=== PATIENT | male | born 1960 | race Caucasian/White ===

== ENCOUNTER → 2024-02-29 06:27 | Day surgery (SDC) | payer OTHER, SELFPAY | LOC: GI 06:27 | PROVIDERS: ATTENDING PHYSICIAN Internal Medicine | DX: D49.0 Neoplasm of unspecified behavior of digestive system (principal); D12.2 Benign neoplasm of ascending colon; K64.8 Other hemorrhoids; K64.4 Residual hemorrhoidal skin tags; Z80.0 Family history of malignant neoplasm of digestive organs | CPT/HCPCS: 45385; 45380; 88305 ==

== ENCOUNTER → 2024-09-01 20:31 | Outpatient (REF) | payer MEDICARE, SELFPAY | LOC: MRI 20:31 | PROVIDERS: ATTENDING PHYSICIAN Nurse Practitioner Family | DX: M54.50 Low back pain, unspecified (principal) | CPT/HCPCS: 72148 ==

== ENCOUNTER 2024-09-30 15:56 | Emergency (ER) | payer MEDICARE, SELFPAY ==
[2024-09-30 16:03] VITALS: BP 156/67
--- NOTE | 2024-09-30 17:05 | ED.GENMED ---
History of Present Illness
General
Chief Complaint: Urinary Symptoms
Time Seen by Provider: 09/30/24 16:21
History of Present Illness
History of Present Illness:
64-year-old male with history of chronic A-fib, CAD, hypertension, hyperlipidemia, presents to the emergency department for evaluation of pelvic/genital pain associated with skin lesions for the past 2 days. Notes that he has chronic urinary
retention felt to be due to neurogenic bladder from lumbar disc disease, feels it is worse since the lesions developed. Denies any fevers or chills. Does have mild dysuria.
Past History
Past History
ED Past Medical History: Arrthythmia (afib), CAD, CHF, HTN, [place] and Other (RSD )
ED Past Surgical History: Orthopedic
Social History
Tobacco: Non-smoker
Alcohol: None
Drug: None
Personal: Single
Living: with family
Employment: Not employed
Review of Systems
Review of Systems
Allergies reviewed?: Yes
All Other Systems: ROS reviewed and negative except as documented in HPI and ROS
Phy Exam
Physical Exam
Physical Exam:
GEN: Well appearing, NAD, WDWN
HEENT: Oral mucosa moist, no scleral icterus
Cardiac: Regular rate
Lung: No respiratory distress, no tachypnea
: Vesicular/erythematous lesions confined to the right perineum, scrotal sac, and perirectal area with no encroachment across the midline
MSK: No gross deformity or injuries
Skin: Good color, no pallor or jaundice, no rashes
Neuro: AO x3, moves all extremities freely
Psych: Calm, cooperative
Course
Orders/Labs/Results
Orders:
Orders
09/30/24 16:29
Bladder Scan- Treatment ONCE
09/30/24 16:35
Urinalysis Reflex To Culture Urgent
Date Specimen was Collected: 09/30/24
Time Specimen was Collected: 16:31
Varicella-Zoster Virus By PCR [S] Urgent
Source: Vesicle Fluid
Vital Signs
Initial and Last Documented VS:
Initial Vital Signs
Temp Pulse Resp BP Pulse Ox
98.4 F 78 16 156/67 98
09/30/24 16:03 09/30/24 16:03 09/30/24 16:03 09/30/24 16:03 09/30/24 16:03
Last Documented Vital Signs
Temp Pulse Resp BP Pulse Ox
98.4 F 78 16 156/67 98
09/30/24 16:03 09/30/24 16:03 09/30/24 16:03 09/30/24 16:03 09/30/24 16:03
MDM/Problems Addressed
MDM/Problems Addressed:
Clinical exam consistent with herpes zoster, patient requesting testing despite the clinical appearance which was performed. Will start the patient empirically on valacyclovir and gabapentin. Of note he does report acute on chronic urinary
retention, postvoid bladder scan with 250 mL. He declines Graff catheter placement, will follow-up with his urologist for further evaluation of this
*Critical Care Note
Total Time (30-74mins, 75-104mins- exclusive of procedures): Not Applicable
ED Attending Note
-
Portions of this chart may have been created with voice recognition software.� Occasional wrong word or��sound alike� substitutions may have occurred due to the inherent limitations of voice recognition software.
Discharge Plan
Departure
Patient Disposition: Home (Routine Discharge)
Date of Disposition: 09/30/24
Time of Disposition: 17:06
Patient with high blood pressure during this ER visit?: No
Discharge Problem:
Herpes zoster
Instructions: Shingles
Prescriptions:
New
valacyclovir 1 gram tablet
1,000 mg PO TID 7 Days Qty: 21 0RF
gabapentin 300 mg capsule
300 mg PO TID Qty: 30 0RF
No Action
acetaminophen 325 MG tablet
325 mg PO Q6HPRN PRN (Reason: pain)
butalbital-acetaminophen [Tencon] 1 EACH tablet
1 ea PO PRN PRN (Reason: pain)
lorazepam 0.5 MG tablet
0.5 mg PO HSPRN PRN (Reason: sleep aid)
Patient Comments:
to help sleep
clopidogrel 75 MG tablet
75 mg PO DAILY Qty: 30 11RF
pantoprazole 40 MG tablet,delayed release (DR/EC)
40 mg PO DAILY Qty: 30 1RF
propranolol 20 MG tablet
20 mg PO Q6HPRN PRN (Reason: AFib/palpitations) Qty: 30 0RF
apixaban [Eliquis] 5 MG tablet
5 mg PO BID Qty: 60 3RF
nitroglycerin 0.4 MG tablet, sublingual
0.4 mg sublingual [id number] PRN (Reason: chest pain ) Qty: 25 0RF
Rx Instructions:
Take 1 tab under the tongue every 5 minutes x 3 doses as needed for chest pain
atorvastatin 80 MG tablet
40 mg PO QPM
furosemide 40 MG tablet
40 mg PO DAILY Qty: 30 3RF
amiodarone 200 MG tablet
400 mg PO BID Qty: 90 3RF
Rx Instructions:
400 mg BID for a week then 200 mg BID
Referrals:
Erik Cummings I., DO [Family Provider] -
Activity Restrictions/Additional Instructions:
Follow-up with your urologist regarding your urinary retention as any worsening may require placement of an indwelling catheter
Interventions
Interventions:
*Risk Screen - Suicide Last Done: 09/30/24 16:03
*General Assessment Last Done: 09/30/24 16:40
*Neglect/Abuse Screening Last Done: 09/30/24 16:03
*ED COVID-19 Vaccine History Last Done: 09/30/24 16:40
*Nursing Disposition Last Done: 09/30/24 17:17
ED-Male Genitourinary Assessment Last Done: 09/30/24 16:56
Discharge Date and Time
Discharge Date/Time: 09/30/24 17:18
Print Language: EMIRATI
[2024-09-30 17:10] LABS: Urine Albumin Negative (Neg - Trace); Urine Bilirubin Negative (Negative); Urine Character Clear (Clear); Urine Color Yellow; Urine Glucose Negative (Negative); Urine Ketone Negative (Negative); Urine Leukocyte Negative (Negative); Urine Nitrite Negative (Negative); Urine Occult Blood Negative (Negative); Urine Urobilinogen Negative (Neg - 1+)
== END 2024-09-30 17:18 | disposition home or self-care (01) ==
LOC: EMR 15:56
PROVIDERS: Physician Assistant; EMERGENCY PHYSICIAN Emergency Medicine; FAMILY PHYSICIAN Internal Medicine
DX: B02.9 Zoster without complications (principal); R33.9 Retention of urine, unspecified; I48.20 Chronic atrial fibrillation, unspecified; I25.10 Atherosclerotic heart disease of native coronary artery without angina pectoris; I11.0 Hypertensive heart disease with heart failure; I50.9 Heart failure, unspecified
CPT/HCPCS: 99283; 51798; 81003; 87798

== ENCOUNTER 2025-01-30 20:40 | Emergency (ER) | payer MEDICARE, SELFPAY ==
[2025-01-30 20:42] VITALS: BP 142/96
[2025-01-30 21:05] VITALS: BP 137/108; BMI 25.4
--- NOTE | 2025-01-30 21:16 | ED.GENMED ---
History of Present Illness
General
Chief Complaint: Cardiac Symptoms
Time Seen by Provider: 01/30/25 21:12
History of Present Illness
History of Present Illness:
TIME OF INITIAL ENCOUNTER: 9:20 PM
HPI: Patient presents due to palpitations for the past 6 hours. He has a history of A-fib and is on diltiazem. He did take an extra diltiazem but this did not helped. He is no longer on propranolol. He is no longer on sotalol. He did take
flecainide today. He states that he had an ablation in the past that was rather extensive. He never had any chest pain.
EXAM:
GENERAL: Well appearing in no distress
HEENT: Moist oral mucosa
CARDIOVASCULAR: No murmurs, tachycardic heart rate, regular rhythm, No chest wall tenderness
PULMONARY: No respiratory distress, breath sounds are clear and equal
ABDOMEN: Soft with no peritoneal signs, no tenderness
NEUROLOGIC: Excellent strength all extremities, no coordination deficits
PSYCHIATRIC: Appropriate mental status, normal insight and judgement
EXTREMITIES: Nontender, no edema, moves all extremities equally
SKIN: No rash, no lesions
NUMBER AND COMPLEXITY OF PROBLEMS ADDRESSED AT THE ENCOUNTER
� Chronic conditions affecting care: A-fib on Eliquis, CAD
� Acute Exacerbation and/or Progression of Chronic Illness: This is an acute problem
� Differential Diagnosis includes: Sinus tachycardia, dehydration, atrial tachycardia
AMOUNT AND/OR COMPLEXITY OF DATA TO BE REVIEWED AND ANALYZED
� I performed an independent evaluation of and my interpretation is:
EKG: Sinus 116, nonspecific ST abnormality
CT:
X-rays:
Laboratory Studies: CBC and chemistries unremarkable, TSH normal
Other:
� Review of other/old records: I reviewed records, the patient had cardioversion due to symptomatic atrial fibrillation which was unsuccessful in 2020
� Clinical information was obtained by an independent historian: I spoke to his neighbor at bedside
� Prescriptions/Medications Considered but not given:
� Further testing considered but not performed:
RISK OF COMPLICATIONS AND/OR MORBIDITY OR MORTALITY OF PATIENT MANAGEMENT
� Social determinants of health affecting care: Lives at home
� Discussion with other providers:
� Escalation of care including admission/observation vs risk of discharge considered: The patient monitoring appears to be sinus rhythm as opposed to a 2-1 block or atrial flutter. We did give metoprolol 2.5 mg IV and he did
tolerate well with heart rates coming down to about 105. We then gave a second dose of 2.5 mg IV as well as IV fluids. The patient states he primarily sees [facility] repairer and does not want to see jewelry repairer here through [place] anymore.
ANY OTHER UPDATES:
10:05 PM: The feels slightly improved after metoprolol and fluids. He will follow-up with his [facility] jewelry repairer by calling tomorrow. Heart rate has been going down to about 100 with treatment. He is in a sinus rhythm. No clear evidence for
atrial tachycardia.
Past History
Past History
ED Past Medical History: Arrthythmia (afib), CAD, CHF, HTN, [place] and Other (RSD )
ED Past Surgical History: Orthopedic
Social History
Tobacco: Non-smoker
Alcohol: None
Drug: None
Personal: Single
Living: with family
Employment: Not employed
Phy Exam
Physical Exam
Physical Exam:
See HPI
Course
Orders/Labs/Results
Orders:
Orders
01/30/25 20:45
EKG [Electrocardiogram (*1)] Urgent
Reason for Study: Tachycardia
EKG- Treatment ONCE
01/30/25 21:14
CMP [Comprehensive Metabolic Panel] Urgent
Complete Blood Count/With Diff Urgent
TSH Reflex To Free T4 Urgent
Comment: ADD ON
01/30/25 21:25
Add On- LAB Urgent
Tests Added?: tsh reflex fT4
Metoprolol [Lopressor] 2.5 mg IV NOW STA
01/30/25 21:27
0.9% Sodium Chloride 1000 ml [Nss] 1,000 ml IV BOLUS
01/30/25 21:55
Metoprolol [Lopressor] 2.5 mg IV NOW STA
Abnormal Lab Results
01/30/25
21:14
MCH 31.8 H pg
(27.0-31.0)
Absolute Neuts (auto) 7.1 H 10^3/uL
(1.4-6.5)
Absolute Monos (auto) 0.8 H 10^3/uL
(0.1-0.6)
Lymphocytes % 14.6 L %
(20.5-51.1)
Glucose 123 H mg/dl
(70-99)
01/30/25 21:14
01/30/25 21:14
Vital Signs
Initial and Last Documented VS:
Initial Vital Signs
Temp Pulse Resp BP Pulse Ox
36.5 C 117 18 142/96 99
01/30/25 20:42 01/30/25 20:42 01/30/25 20:42 01/30/25 20:42 01/30/25 20:42
Last Documented Vital Signs
Temp Pulse Resp BP Pulse Ox
36.5 C 113 18 139/97 99
01/30/25 20:42 01/30/25 21:57 01/30/25 20:42 01/30/25 21:57 01/30/25 20:42
*Critical Care Note
Total Time (30-74mins, 75-104mins- exclusive of procedures): Not Applicable
ED Attending Note
-
Portions of this chart may have been created with voice recognition software.� Occasional wrong word or��sound alike� substitutions may have occurred due to the inherent limitations of voice recognition software.
Discharge Plan
Departure
Patient Disposition: Home (Routine Discharge)
Date of Disposition: 01/30/25
Time of Disposition: 22:13
Patient with high blood pressure during this ER visit?: Yes
Discharge Problem:
Palpitations
Prescriptions:
No Action
acetaminophen 325 MG tablet
325 mg PO Q6HPRN PRN (Reason: pain)
butalbital-acetaminophen [Tencon] 1 EACH tablet
1 ea PO PRN PRN (Reason: pain)
lorazepam 0.5 MG tablet
0.5 mg PO HSPRN PRN (Reason: sleep aid)
Patient Comments:
to help sleep
clopidogrel 75 MG tablet
75 mg PO DAILY Qty: 30 11RF
pantoprazole 40 MG tablet,delayed release (DR/EC)
40 mg PO DAILY Qty: 30 1RF
propranolol 20 MG tablet
20 mg PO Q6HPRN PRN (Reason: AFib/palpitations) Qty: 30 0RF
apixaban [Eliquis] 5 MG tablet
5 mg PO BID Qty: 60 3RF
nitroglycerin 0.4 MG tablet, sublingual
0.4 mg sublingual [id number] PRN (Reason: chest pain ) Qty: 25 0RF
Rx Instructions:
Take 1 tab under the tongue every 5 minutes x 3 doses as needed for chest pain
atorvastatin 80 MG tablet
40 mg PO QPM
furosemide 40 MG tablet
40 mg PO DAILY Qty: 30 3RF
amiodarone 200 MG tablet
400 mg PO BID Qty: 90 3RF
Rx Instructions:
400 mg BID for a week then 200 mg BID
valacyclovir 1 gram tablet
1,000 mg PO TID 7 Days Qty: 21 0RF
gabapentin 300 mg capsule
300 mg PO TID Qty: 30 0RF
Referrals:
Erik Cummings I., [Family Provider] -
Activity Restrictions/Additional Instructions:
Basic blood work is normal. EKG shows a sinus tachycardia. We gave you metoprolol 2.5 mg IV twice. We also gave you a liter of IV fluids. Your heart rate did slightly improved. I recommend that you follow-up with your [facility] [employer] repairer by
at least calling them in the morning.
Interventions
Interventions:
*Risk Screen - Suicide Last Done: 01/30/25 20:44
*General Assessment Last Done: 01/30/25 20:44
*Neglect/Abuse Screening Last Done: 01/30/25 20:44
*ED COVID-19 Vaccine History Last Done: 01/30/25 20:44
ED- Pulmonary Assessment Last Done: 01/30/25 22:36
ED- Cardiac Assessment Last Done: 01/30/25 22:36
Discharge Date and Time
Print Language: CANADIAN
[2025-01-30 21:30] LABS: % Basophils 0.6 % (0-2); % Immature Granulocytes 0.3 % (0-0.5); % Lymphocytes 14.6 % (20.5-51.1); % Monocytes 8.4 % (1.7-9.3); % Neutrophils 75.1 % (42.2-75.2); Absolute Basophils 0.1 10^3/uL (0-0.2); Absolute Eosinophils 0.1 10^3/uL (0-0.7); Absolute Lymphocytes 1.4 10^3/uL (1.2-3.4); Absolute Monocytes 0.8 10^3/uL (0.1-0.6); Absolute Neutrophils 7.1 10^3/uL (1.4-6.5); Hematocrit 44.4 % (39.0-52.0); Hemoglobin 15.6 g/dL (13.0-18.0); Mean Corp Hgb Conc. 35.1 g/dL (33.0-37.0); Mean Corpuscular Hgb 31.8 pg (27.0-31.0); Mean Corpuscular Volume 90.6 fL (80.0-94.0); Mean Platelet Volume 8.5 fL (7.4-10.4); Nucleated Red Blood Cells % 0 % (-); Platelet Count 276 10^3/uL (130-400); Red Cell Dist. Width 12.1 % (11.5-14.5); White Blood Cell Count 9.4 10^3/uL (4.8-10.8)
[2025-01-30 21:38] VITALS: BP 144/86
[2025-01-30] MEDS: LOPRESSOR 2.5 MG IV ×2 (21:38→21:57)
[2025-01-30] MEDS: NSS 1000 IV (21:42)
[2025-01-30 21:47] VITALS: BP 139/97
[2025-01-30 21:50] LABS: ALT (SGPT) 22 U/L (0-50); AST (SGOT) 35 U/L (17-59); Alkaline Phosphatase 72 U/L (38-126); Blood Urea Nitrogen 17 mg/dl (9-20); Calcium 9.6 mg/dl (8.4-10.2); Carbon Dioxide 24 mmol/L (22-30); Chloride 100 mmol/L (98-107); Estimated Creatinine Clearance 102 ml/min; Glucose 123 mg/dl (70-99); Potassium 4.1 mmol/L (3.5-5.1); Sodium 135 mmol/L (135-145); Total Bilirubin 0.7 mg/dl (0.2-1.3); Total Protein 7.8 g/dl (6.3-8.2); eGFR > 60.00
[2025-01-30 22:33] LABS: TSH Reflex To Free T4 1.05 uIU/ml (0.47-4.68)
[2025-01-30 22:36] VITALS: BP 146/98
== END 2025-01-30 22:42 | disposition home or self-care (01) ==
LOC: EMR 20:40
PROVIDERS: Emergency Medicine; EMERGENCY PHYSICIAN Emergency Medicine; FAMILY PHYSICIAN Internal Medicine
DX: R00.2 Palpitations (principal); I11.0 Hypertensive heart disease with heart failure; I50.9 Heart failure, unspecified; I48.91 Unspecified atrial fibrillation
CPT/HCPCS: 99284; 96374; 96361; 80053; 84443; 85025; 93005

== ENCOUNTER → 2025-04-13 17:31 | Outpatient (REF) | payer MEDICARE, SELFPAY | LOC: RAD 17:31 | PROVIDERS: ATTENDING PHYSICIAN Nurse Practitioner Adult Health; FAMILY PHYSICIAN Internal Medicine | DX: R07.81 Pleurodynia (principal); R05.1 Acute cough | CPT/HCPCS: 71046; 71110 ==

== ENCOUNTER 2025-05-27 15:59 | Emergency (ER) | payer MEDICARE, SELFPAY ==
[2025-05-27 16:01] VITALS: BP 160/68
[2025-05-27 16:26] LABS: Hematocrit 39.0 % (39.0-52.0); Hemoglobin 13.5 g/dL (13.0-18.0); Mean Corp Hgb Conc. 34.6 g/dL (33.0-37.0); Mean Corpuscular Volume 90.5 fL (80.0-94.0); Nucleated Red Blood Cells % 0 % (-); Platelet Count 253 10^3/uL (130-400); Red Cell Dist. Width 12.4 % (11.5-14.5)
[2025-05-27 16:53] LABS: ALT (SGPT) 18 U/L (0-50); AST (SGOT) 23 U/L (17-59); Albumin 4.3 g/dl (3.5-5.0); Alkaline Phosphatase 57 U/L (38-126); Blood Urea Nitrogen 17 mg/dl (9-20); Calcium 9.2 mg/dl (8.4-10.2); Carbon Dioxide 25 mmol/L (22-30); Chloride 100 mmol/L (98-107); Glucose 140 mg/dl (70-99); Potassium 4.2 mmol/L (3.5-5.1); Sodium 132 mmol/L (135-145); Total Protein 7.1 g/dl (6.3-8.2); eGFR > 60.00
[2025-05-27 17:05] LABS: Troponin I < 0.012 ng/ml
--- NOTE | 2025-05-27 17:56 | ED.GENMED ---
History of Present Illness
General
Chief Complaint: Chest Pain
Source: patient
Time Seen by Provider: 05/27/25 17:31
History of Present Illness
History of Present Illness:
64-year-old male presents to the emergency room complaining of chest pain. Patient has been having the discomfort intermittently for the past few weeks. The discomfort does not seem to be related to any sort of activity. Patient states he has
chronic pain and therefore his activity level is quite limited. When the pain began he was not quite sure if it was cardiac in nature or if it could be related to his chronic pain syndrome. However today he became more concerned that it could be
related to his heart prompting his visit to the ER. He denies any associated diaphoresis, nausea or shortness of breath. This latest episode of discomfort started this morning and continues to be present now. It waxes and wanes in intensity but
has not gone away.
Past History
Past History
ED Past Medical History: Arrthythmia (afib), CAD, CHF, HTN, [place] and Other (RSD )
ED Past Surgical History: Orthopedic
Social History
Tobacco: Non-smoker
Alcohol: None
Drug: None
Personal: Single
Living: with family
Employment: Not employed
Phy Exam
Physical Exam
Physical Exam:
General: Awake, Alert, Oriented X3. No acute distress.
Vitals: unremarkable
Head: Atraumatic
Eyes: Pupils equal, EOMI
Throat: Airway intact, no exudates
Neck: Trachea midline
Lungs: Clear and equal b/l
Heart: Regular rate, no murmurs
Abd: Soft, Nontender, No pulsatile mass
Neuro: Nonfocal
Skin: Warm, dry, no rash
Extremities: pulses equal b/l, no edema
Scores
Heart Score for Chest Pain Patients
STEMI patient?: No
History: Slightly or Non-Suspicious
ECG: Nonspecific Repolarization
Age: >/= 65 years
Risk Factors: >/= 3 Risk Factors or History of CAD
Troponin: </= Normal Limit
Heart Score for Chest Pain Patients: 5
Heart Score Risk: 20.3% MACE over next 6 weeks
Course
Orders/Labs/Results
Orders:
Orders
05/27/25 16:01
Electrocardiogram (*1) Urgent
Reason for Study: Chest Pain
EKG- Treatment ONCE
05/27/25 16:15
CMP [Comprehensive Metabolic Panel] Urgent
Complete Blood Count/With Diff Urgent
Troponin I Urgent
05/27/25 18:03
CR Chest - 2 Views Urgent
Comment:
Reason For Exam: chest pain
05/27/25 19:52
Troponin I Urgent
Abnormal Lab Results
05/27/25
16:15
RBC 4.31 L 10^6/uL
(4.70-6.10)
MCH 31.3 H pg
(27.0-31.0)
Absolute Neuts (auto) 6.9 H 10^3/uL
(1.4-6.5)
Absolute Lymphs (auto) 0.9 L 10^3/uL
(1.2-3.4)
Neutrophils % 82.6 H %
(42.2-75.2)
Lymphocytes % 10.7 L %
(20.5-51.1)
Sodium 132 L mmol/L
(135-145)
Glucose 140 H mg/dl
(70-99)
05/27/25 16:15
05/27/25 16:15
Vital Signs
Initial and Last Documented VS:
Initial Vital Signs
Temp Pulse Resp BP Pulse Ox
98 F 67 16 160/68 97
05/27/25 16:01 05/27/25 16:01 05/27/25 16:01 05/27/25 16:01 05/27/25 16:01
Last Documented Vital Signs
Temp Pulse Resp BP Pulse Ox
98 F 54 24 143/67 100
05/27/25 16:01 05/27/25 21:15 05/27/25 21:15 05/27/25 21:00 05/27/25 21:15
MDM/Problems Addressed
Differential Diagnosis Includes:
ACS, PVCs, PACs, pneumothorax, anxiety
MDM/Problems Addressed:
Patient presents with chest pain has been intermittent for quite some time. No acute ischemic changes on EKG here. Troponin is normal x 2. Patient does have history of coronary artery disease but with 2 negative troponins and overall atypical
description of his discomfort I feel is appropriate for her to be discharged and follow-up with his director of community services at [place]. Patient also informs me he is scheduled for a CT of his chest to evaluate his coronary arteries. He has yet to schedule
this but he does have the order for it.
Chronic conditions affecting care: HTN, CAD and Arrhythmia (Atrial fibrillation)
*Radiology
Radiology exam reviewed: preliminary read by ED provider (No acute abnormalities)
*Pulse Oximetry
SaO2: 97
Oxygen Mode of Delivery: Room air
Patient hypoxic: no
*EKG
Interpreted by ED Provider?: Yes
Interpretation: abnormal
Heart Rate: 66
Rate: normal
Rhythm: sinus
[place]: normal axis
Interval: normal interval
QRS Pattern: normal QRS
Ischemia: non-specific ST changes
*Buyer [employer] Head Interpretation
Rate: normal
Interpretation: normal
Heart Rate: 66
Rhythm: sinus
*Critical Care Note
Total Time (30-74mins, 75-104mins- exclusive of procedures): Not Applicable
ED Attending Note
-
Portions of this chart may have been created with voice recognition software.� Occasional wrong word or��sound alike� substitutions may have occurred due to the inherent limitations of voice recognition software.
Discharge Plan
Departure
Patient Disposition: Home (Routine Discharge)
Date of Disposition: 05/27/25
Time of Disposition: 21:05
Patient with high blood pressure during this ER visit?: Yes
Condition: Good
Discharge Problem:
Chest pain
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
Prescriptions:
No Action
acetaminophen 325 MG tablet
325 mg PO Q6HPRN PRN (Reason: pain)
butalbital-acetaminophen [Tencon] 1 EACH tablet
1 ea PO PRN PRN (Reason: pain)
lorazepam 0.5 MG tablet
0.5 mg PO HSPRN PRN (Reason: sleep aid)
Patient Comments:
to help sleep
clopidogrel 75 MG tablet
75 mg PO DAILY Qty: 30 11RF
pantoprazole 40 MG tablet,delayed release (DR/EC)
40 mg PO DAILY Qty: 30 1RF
propranolol 20 MG tablet
20 mg PO Q6HPRN PRN (Reason: AFib/palpitations) Qty: 30 0RF
apixaban [Eliquis] 5 MG tablet
5 mg PO BID Qty: 60 3RF
nitroglycerin 0.4 MG tablet, sublingual
0.4 mg sublingual [id number] PRN (Reason: chest pain ) Qty: 25 0RF
Rx Instructions:
Take 1 tab under the tongue every 5 minutes x 3 doses as needed for chest pain
atorvastatin 80 MG tablet
40 mg PO QPM
furosemide 40 MG tablet
40 mg PO DAILY Qty: 30 3RF
amiodarone 200 MG tablet
400 mg PO BID Qty: 90 3RF
Rx Instructions:
400 mg BID for a week then 200 mg BID
valacyclovir 1 gram tablet
1,000 mg PO TID 7 Days Qty: 21 0RF
gabapentin 300 mg capsule
300 mg PO TID Qty: 30 0RF
Referrals:
Erik Cummings I., DO [Family Provider, Internal Medicine]
Interventions
Interventions:
*Risk Screen - Suicide Last Done: 05/27/25 16:03
*General Assessment Last Done: 05/27/25 18:02
*Neglect/Abuse Screening Last Done: 05/27/25 16:03
*ED- Fall Risk Assessment Last Done: 05/27/25 19:25
*ED COVID-19 Vaccine History Last Done: 05/27/25 18:02
*Nursing Disposition Last Done: 05/27/25 21:46
ED- Cardiac Assessment Last Done: 05/27/25 18:02
Discharge Date and Time
Discharge Date/Time: 05/27/25 21:46
Print Language: [place]
[2025-05-27 18:00] VITALS: BP 144/75
[2025-05-27 19:01] VITALS: BP 152/68
[2025-05-27 20:00] VITALS: BP 138/65
[2025-05-27 20:35] LABS: Troponin I < 0.012 ng/ml
[2025-05-27 21:00] VITALS: BP 143/67
== END 2025-05-27 21:46 | disposition home or self-care (01) ==
LOC: EMR 15:59
PROVIDERS: Emergency Medicine; EMERGENCY PHYSICIAN Emergency Medicine; FAMILY PHYSICIAN Internal Medicine
DX: R07.89 Other chest pain (principal); I48.91 Unspecified atrial fibrillation; I25.10 Atherosclerotic heart disease of native coronary artery without angina pectoris; I11.0 Hypertensive heart disease with heart failure; I50.9 Heart failure, unspecified; I25.2 Old myocardial infarction
CPT/HCPCS: 99283; 71046; 80053; 84484; 85025; 93005